=== PATIENT | female | born 1975 | race Two or more races ===

== ENCOUNTER 2025-06-04 14:30 | Outpatient (RCR) | payer MEDICAID, SELFPAY ==
--- NOTE | 2025-06-04 15:07 | PT.OIERPT ---
PT OP Initial Eval Patient Information Outpatient Physical Therapy Treatment Date: 06/04/25 Visit Reasons: low back pain/neck pain Medical Diagnosis: M54.2 M54.50 Treatment Dx #1: LBP with radiculopathy Start of Care: 06/04/25 Date of Onset: 5 yrs ago Smoking Status Smoking Status: Never smoker Initial Assessment Subjective: Pt is 49 yr old latvian speaking female who reports intense LBP after working that runs down the L glute into the LE to the calf and sometimes the R LE. 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 PMH: none reported Imaging: CT of abdomen shows sagittal view of lumbar spine Pt goal: to get rid of the pain Objective: Trunk ArOM: ? B SB 50% of normal with pain ? Extension: 40% with pain around L4-5, L5-S1 ? Flexion: 6 from floor with LBP ? B rotation: 60% ? TTP: moderate paraspinals L5-S1 ? Neuro: B SLR: negative Assessment: ? Pt presents with trunk flexion sensitivity and overlying myofascial pain ? and TTP around L4-5, L5-S1 consistent with CT that reveals advanced ? lumbar disc space narrowing. Pt requires skilled therapy in order to decrease ? pain and improve sitting/standing tolerance and has fair poor/rehab potential. Eval ? followed by HEP printout. PT recommends further diagnostic imaging of L/S such as MRI. Short Term and Health And Safety Director Goals ? 1. Ind with HEP ? 2. Improved sitting tolerance to 30 minutes with <=3/10 LBP ? 3. Decreased lower paraspinal TTP from mod to min 4. Improved HH chore tolerance to at least 30 minutes with <=3/10 LBP and no ? increase in LE ssx ? Treatment Plan 1. Manual therapy ? 2. Therex ? 3. Modalities as indicated, moist heat, ice, estim, mechanical traction Frequency and Duration: 1-2x a week for 3-4 trial visits. If progressing with goals continue up to 12 visits plus the evaluation Certification Dates: 06/04/25 to 09/02/25 Procedure Charges OP PT Eval Mod Complex 30 minutes: Yes
== END 2025-06-21 23:59 | disposition home or self-care (01) ==
LOC: CPTX 14:30
PROVIDERS: PCP Physician Assistant Medical; Referring Provider Physician Assistant Medical; Visit Provider Physician Assistant Medical
DX: M54.16 Radiculopathy, lumbar region (principal); M54.2 Cervicalgia
CPT/HCPCS: 97162

== ENCOUNTER → 2025-06-25 | Outpatient (CLI) | payer MEDICAID, SELFPAY ==
--- NOTE | 2025-06-25 13:15 | XR_ITS ---
Examination: Breast ultrasound complete, bilateral Date and time of exam: June 25, 2025 1257 hours INDICATIONS: Mammogram May 17, 2025 7 mm nodule upper outer left breast Technique: Real-time grayscale ultrasonographic imaging bilateral breasts, including all 4 quadrants as well as nipple retroareolar and axillary regions. Findings: Sonographic images right and left breast demonstrated no cystic or solid masses IMPRESSION: BI-RADS Category 1: Negative study
--- NOTE | 2025-06-25 14:15 | XR_ITS ---
Examination: Diagnostic digital mammography, unilateral, left Computer aided detection 3-D breast Tomosynthesis, unilateral Date and time of exam: June 25, 2025 1309 hours INDICATIONS: 7 mm nodule upper left breast 10 cm from the nipple on mammogram May 17, 2025 Technique: Nonmagnified MLO, CC views of the left breast have been obtained, reconstructed from 3-D Tomosynthesis images. R2 computer aided detection program utilized for evaluation of suspicious masses and/or abnormal calcifications. 3-D Tomosynthesis images obtained. Findings: Scattered areas of fibroglandular density Circumscribed nodule which may represent an intramammary lymph node upper outer left breast Impression: BI-RADS category 3: Probably benign findings One additional 6 month left mammogram follow-up is needed
== END | disposition home or self-care (01) ==
LOC: CDIM 12:39
PROVIDERS: Referring Provider Physician Assistant Medical; Visit Provider Physician Assistant Medical
DX: R92.332 Mammographic heterogeneous density, left breast (principal); R92.8 Other abnormal and inconclusive findings on diagnostic imaging of breast
CPT/HCPCS: 76641; 77061; 77065; G0279